=== PATIENT | male | born 1935 | race Caucasian/White ===

== ENCOUNTER 2025-02-14 10:32 | Inpatient (IN) | payer MEDICARE, OTHER ==
[~2025-02-14] VITALS: Ht 152.4 cm; Wt 77.4 kg
--- NOTE | 2025-02-14 11:13 | ED.PDOC ---
General HPI Comments This is a 89 year old male presenting to the ED with chief complaint of hematuria. Patient reports that he began to experience hematuria since last night. Patient relays that he had a similar episode occur 6 months ago, but it had self resolved. Patient denies any dysuria, flank pain, abdominal pain, fever, chills, or penile discharge. Chief Complaint: Urinary Time Seen by MD: 11:10 Reviewed notes: Nurses Notes, Medications, Allergies Allergies: Coded Allergies: Bacitracin (Verified Allergy, Unknown, 07/14/16) Neomycin (Verified Allergy, Unknown, 07/14/16) Polymyxin B (Verified Allergy, Unknown, 07/14/16) Information Source: Patient Mode of Arrival: Ambulatory Severity: Mild Timing: Hours Duration: Since onset Prehospital treatment: None Onset: Spontaneous Symptoms: Hematuria History of: BPH Location: None Penile discharge: None Modifying factors: None associated signs and symptoms: Hematuria Past Medical History PAST MEDICAL HISTORY: CKF, HTN Past Medical History (Other): BPH Surgical History: Denies all surgeries Family History Family History: Reviewed,noncontributory to illness Social History Smoker: Non-Smoker Alcohol: Denies ETOH Use Drugs: Denies Drug Use Lives In: Home Constitutional: denies: chills, diaphoresis, fatigue, fever, malaise, sweats, weakness, others EENTM: denies: blurred vision, double vision, ear bleeding, ear discharge, ear drainage, ear pain, ear ringing, eye pain, eye redness, hearing loss, mouth pain, mouth swelling, nasal discharge, nose bleeding, nose congestion, nose pain, photophobia, tearing, throat pain, throat swelling, voice changes, others Respiratory: denies: cough, hemoptysis, orthopnea, SOB at rest, shortness of breath, SOB with excertion, stridor, wheezing, others Cardiovascular: denies: chest pain, dizzy spells, diaphoresis, Dyspnea on exertion, edema, irregular heart beat, left arm pain, lightheadedness, palpitations, PND, syncope, others Gastrointestinal: denies: abdomen distended, abdominal pain, blood streaked bowels, constipated, diarrhea, dysphagia, difficulty swallowing, hematemesis, melena, nausea, poor appetite, poor fluid intake, rectal bleeding, rectal pain, vomiting, others Genitourinary: reports: hematuria; denies: burning, dysuria, flank pain, frequency, incontinence, penile discharge, penile sore, pain, testicle pain, testicle swelling, urgency, others Neurological: denies: dizziness, fainting, headache, left sided numbness, left sided weakness, numbness, paresthesia, pre-existing deficit, right sided numbness, right sided weakness, seizure, speech problems, tingling, tremors, weakness, others Musculoskeletal: denies: back pain, gout, joint pain, joint swelling, muscle pain, muscle stiffness, neck pain, others Integumetry: denies: bruises, change in color, change in hair/nails, dryness, laceration, lesions, lumps, rash, wounds, others Allergic/Immunocompromised: denies: Difficulty Healing, Frequent Infections, Hives, Itching, others Hematologic/Lymphatic: denies: anemia, blood clots, easy bleeding, easy bruising, swollen glands, others Endocrine: denies: excessive hunger, excessive sweating, excessive thirst, excessive urination, flushing, intolerance to cold, intolerance to heat, unexplained weight gain, unexplained weight loss, others Psychiatric: denies: anxiety, bipolar disorder, depression, hopeless, panic disorder, schizophrenia, sleepless, suicidal, others All Other Systems: Reviewed and Negative Physical Exam General Appearance: No Apparent Distress, Normal HEENT: Normal ENT Inspection, Pharynx Normal, TMs Normal Neck: Full Range of Motion, Non-Tender, Normal, Normal Inspection Respiratory: Chest Non-Tender, Lungs Clear, No Accessory Muscle Use, No Respiratory Distress, Normal Breath Sounds Cardiovascular: No Edema, No JVD, No Murmur, No Gallop, Normal Peripheral Pulses, Regular Rate/Rhythm Breast Exam: Deferred Gastrointestinal: No Organomegaly, Non Tender, No Pulsatile Mass, Normal Bowel Sounds, Soft Genitalia: Deferred Pelvic: Deferred Rectal: Deferred Extremities: No calf tenderness, Normal capillary refill, Normal inspection, Normal range of motion, Non-tender, No pedal edema Musculoskeletal : Apperance: Normal Neurologic: Alert, 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 Was a procedure done?: No Differential Diagnosis Kidney stone (Female): N/A Kidney stone (Male): AAA, Pyelonephritis, Renal failure, Urinary obstruction, Urolithiasis, Renal infarction, Urinary tract infection Penile/Scrotal: N/A Urinary Problem (Male): Bladder Outlet, Bladder Obstruction, Prostatitis, Renal Failure, Urethritis, Urinary Retention, Urolithiasis, UTI Urinary Problem (Female): N/A X-Ray, Labs, Meds, VS Vital Signs Date Time Temp Pulse Resp B/P (MAP) Pulse Ox O2 Delivery O2 Flow Rate FiO2 02/14/25 12:24 98.4 60 16 137/57 (83) 97 98.4 02/14/25 10:40 98.5 70 16 132/62 (85) 96 98.5 Lab Test 02/14/25 12:24 02/14/25 11:13 Range/Units Urine Color Dark-brown Yellow Urine Clarity Ex.turbid Clear Urine pH 5.5 5.0-9.0 Urine Specific [place] 1.018 1.001-1.035 Urine Protein 1+ H Negative Urine Ketones Negative Negative Urine Blood 3+ H Negative /uL Urine Nitrite Negative Negative Urine Bilirubin Negative Negative Urine Urobilinogen Normal Negative mg/dL Urine Leukocyte Esterase 1+ Negative /uL Urine RBC 5900 0 - 3 /hpf Urine Microscopic WBC 32 H 0-3 /HPF Urine Squamous Epithelial Cells None seen <5 /hpf Urine Bacteria Many H None Seen /hpf Urine Glucose Normal Normal mg/dL White Blood Count 9.2 4.4-10.8 10^3/uL Red Blood Count 4.90 4.5-5.90 10^6/uL Hemoglobin 15.0 13.5-17.5 g/dL Hematocrit 43.3 41.0-53.0 % Mean Corpuscular Volume 88.3 80.0-100.0 fL Mean Corpuscular Hemoglobin 30.5 28.0-32.0 pg Mean Corpuscular Hemoglobin Concent 34.6 32.0-36.0 g/dL Red Cell Distribution Width 13.4 11.8-14.3 % Platelet Count 192 140-450 10^3/uL Mean Platelet Volume 7.4 6.9-10.8 fL Neutrophils (%) (Auto) 71.2 37.0-80.0 % Lymphocytes (%) (Auto) 19.2 10.0-50.0 % Monocytes (%) (Auto) 7.7 0.0-12.0 % Eosinophils (%) (Auto) 1.3 0.0-7.0 % Basophils (%) (Auto) 0.6 0.0-2.0 % Neutrophils # (Auto) 6.5 1.6-8.6 10 ^3/uL Lymphocytes # (Auto) 1.8 0.4-5.4 10 ^3/uL Monocytes # (Auto) 0.7 0-1.3 10 ^3/uL Eosinophils # (Auto) 0.1 0-0.8 10 ^3/uL Basophils # (Auto) 0.1 0-0.2 10 ^3/uL Nucleated Red Blood Cells 0.1 % Sodium Level 139 136-145 mmol/L Potassium Level 5.3 H 3.5-5.1 mmol/L Chloride Level 103 98-107 mmol/L Carbon Dioxide Level 28 20-31 mmol/L Anion Gap 8 5-15 Blood Urea Nitrogen 29 H 9-23 mg/dL Creatinine 1.47 H 0.700-1.30 mg/dL Glomerular Filtration Rate Calc 45 >90 mL/min BUN/Creatinine Ratio 19.7 10.0-20.0 Serum Glucose 119 H 74-106 mg/dL Calcium Level 10.4 8.7-10.4 mg/dL CT Abd/Pel: FINDINGS: Lower chest: A 4 mm pulmonary nodule in the right middle lobe. A 3 mm nodule in the left lower lobe. Liver: 13 mm hypodense lesion in the posterior hepatic dome, indeterminate. Biliary: Small layering gallstones in the gallbladder. No gallbladder wall thic kening or pericholecystic fluid. No biliary ductal dilatation. Pancreas: No fat stranding or focal lesion. Spleen: Normal in size.. Adrenal glands: No nodularity. Kidneys: No renal calculi. No hydroureteronephrosis. Water attenuation cysts. Bladder: There are a few calculi in the urinary bladder measuring up to 18 mm. There is also a 17 mm tubular calculus in the distal right ureter near the ureterovesicular junction. Decompressed urinary bladder. Reproductive organs: Marked prostatomegaly Bowel: No bowel wall thickening or dilatation. Colonic diverticulosis without evidence of diverticulitis. Normal appendix.. Small hiatal hernia. Peritoneum: No free fluid. No free air. Vessels: Normal caliber abdominal aorta. . Lymph nodes: No suspicious lymph nodes. Soft tissues: Unremarkable. . Osseous structures: No acute fracture or subluxation. No suspicious osseous lesions. Degenerative changes of the visualized thoracolumbar spine. IMPRESSION: 1. A few urinary bladder calculi measuring up to 18 mm with marked prostatomegaly. There is also a 17 mm calculus in the distal right ureter near the ureterovesicular junction. 2. Cholelithiasis without evidence of acute cholecystitis. 3. A 1.3 cm hypodense lesion in the posterior right hepatic dome, indeterminate. Recommend further evaluation with CT or MRI with IV contrast, liver protocol. 4. A couple pulmonary nodules in the lung bases measure up to 4 mm. If the patient is high risk for lung cancer, consider follow-up chest CT in 12 months Time of 1ST Reevaluation: 12:10 Reevaluation 1ST: Unchanged Patient Education/Counseling: Diagnosis, Treatment, Prognosis, Need For Follow Up Family Education/Counseling: Diagnosis, Treatment, Prognosis, Need For Follow Up, No Family Present Comments pt has a large right distal ureter stone, with mild uti and renal insufficiency. he will be admitted for. lso he has several nonspecific lesions on the CT which requires further evaluation. Additional Information Reviewed patient's previous visit(s): 07/2016 for SOB The following tests were ordered, and results were reviewed by me: CBC, BMP, UA, CT Abd/Pel Additional information was gathered from interviewing the following independent historian: None I reviewed and agreed with the following test results read by other provider: CT Abd/Pel I discussed treatments and results with medical personnel and: Patient Comprehensive systems review obtained and negative except for what is stated in the HPI. SEPSIS Sepsis Screen Physician Orders Ct Ab Pel Wo Con-No Oral Or Iv (02/14/25 11:05) Ceftriaxone 1gm/50ml D5w (Rocephin) (02/14/25 13:15) Vital Signs Date Time Temp Pulse Resp B/P (MAP) Pulse Ox O2 Delivery O2 Flow Rate FiO2 02/14/25 12:24 98.4 60 16 137/57 (83) 97 98.4 02/14/25 10:40 98.5 70 16 132/62 (85) 96 98.5 Laboratory Tests Test 02/14/25 11:13 White Blood Count 9.2 10^3/uL (4.4-10.8) Departure 1 Departure Time of Disposition: 13:18 Impression: Primary Impression: Ureteral stone Additional Impressions: UTI (urinary tract infection) Qualified Codes: N30.01 - Acute cystitis with hematuria Renal insufficiency Lung nodules Liver nodule Disposition: ADMITTED INPATIENT Admit to: Med Surg Condition: Serious Discharged With: Self, Spouse Critical Care Note Critical Care Time?: Yes (45 min-critical care time only) Critical care comment: due to concerns for patient's condition deteriorating, the care required my highest level of attention and readiness to intervene. i assessed the patient's condition, ordered the proper tests and treatments, reassessed for response and reviewed the results. i communicated with medical personnel and formulated a plan of care. total critical care time does not include any procedures Stability Stability form required: No Heart Score Heart Score: Heart Score Response (Comments) Value History N/A 0 EKG N/A 0 Age N/A 0 Risk Factors N/A 0 Troponin N/A 0 Total 0 I personally scribed for HONEY RG MD ([email or web address]) on 02/14/25 at 11:13. Electronically submitted by Mario Andrews ([email or web address]). I personally scribed for HONEY RG MD ([email or web address]) on 02/14/25 at 12:17. Electronically submitted by Mario Andrews ([email or web address]). HONEY RG MD Feb 14, 2025 11:13
[2025-02-14 11:28] LABS: Hematocrit 43.3 % (41.0-53.0); Hemoglobin 15.0 g/dL (13.5-17.5); Mean Corpuscular Hemoglobin 30.5 pg (28.0-32.0); Mean Corpuscular Volume 88.3 fL (80.0-100.0); Nucleated Red Blood Cells % 0.1 %
[2025-02-14 11:35] LABS: Chloride 103 mmol/L (98-107); Sodium 139 mmol/L (136-145)
[2025-02-14 11:36] LABS: Anion Gap 8 (5-15); Calcium 10.4 mg/dL (8.7-10.4); Carbon Dioxide 28 mmol/L (20-31)
[2025-02-14 11:39] LABS: Potassium 5.3 mmol/L (3.5-5.1)
[2025-02-14 11:41] LABS: BUN/Creatinine Ratio 19.7 (10.0-20.0)
[2025-02-14 11:44] LABS: Blood Urea Nitrogen 29 mg/dL (9-23); Glucose 119 mg/dL (74-106)
--- NOTE | 2025-02-14 12:00 | DVH ---
EXAM DESCRIPTION: CT CT AB PEL WO CON-NO ORAL OR IV CLINICAL HISTORY: painless hematuria COMPARISON: None TECHNIQUE: CT abdomen and pelvis without IV contrast was performed. Coronal and sagittal MPR images were generat ed.CTDI/ DLP = 11.80 mGy / 657.06 mGy.cm Dose reduction technique with one or more of the following methods was performed: Automated exposure control, adjustment of the mA and/or kV according to patient size, use of iterative reconstruction te chnique FINDINGS: Lower chest: A 4 mm pulmonary nodule in the right middle lobe. A 3 mm nodule in the left lower lobe. Liver: 13 mm hypodense lesion in the posterior hepatic dome, indeterminate. Biliary: Small layering gallstones in the gallbladder. No gallbladder wall thickening or pericholecys tic fluid. No biliary ductal dilatation. Pancreas: No fat stranding or focal lesion. Spleen: Normal in size.. Adrenal glands: No nodularity. Kidneys: No renal calculi. No hydroureteronephrosis. Water attenuation cysts. Bladder: There are a few calculi in the urinary bladder measuring up to 18 mm. There is also a 17 mm tubular calculus in the distal right ureter near the ureterovesicular junction. Decompressed urinary bladder. Reproductive organs: Marked prostatomegaly Bowel: No bowel wall thickening or dilatation. Colonic diverticulosis without evidence of diverticuli tis. Normal appendix.. Small hiatal hernia. Peritoneum: No free fluid. No free air. Vessels: Normal caliber abdominal aorta. . Lymph nodes: No suspicious lymph nodes. Soft tissues: Unremarkable. . Osseous structures: No acute fracture or subluxation. No suspicious osseous lesions. Degenerative c hanges of the visualized thoracolumbar spine. IMPRESSION: 1. A few urinary bladder calculi measuring up to 18 mm with marked prostatomegaly. There is also a 17 mm calculus in the distal right ureter near the ureterovesicular junction. 2. Cholelithiasis without evidence of acute cholecystitis. 3. A 1.3 cm hypodense lesion in the posterior right hepatic dome, indeterminate. Recommend further ev aluation with CT or MRI with IV contrast, liver protocol. 4. A couple pulmonary nodules in the lung bases measure up to 4 mm. If the patient is high risk for l lenny cancer, consider follow-up chest CT in 12 months
[2025-02-14 12:43] LABS: Urine Protein, UAD 1+ (Negative)
[2025-02-14] MEDS: cefTRIAXone 1GM/50ML D5W 50 ML IV ONE (13:15)
[2025-02-14] MEDS ORDERED: DOCUSATE SOD 100 MG CAP PO PRN (15:15)
[2025-02-14] MEDS ORDERED: ONDANSETRON HCL 4 MG/2 ML VIAL IV PRN (15:15)
[2025-02-14] MEDS ORDERED: CLIN150C18 PO (15:46)
[2025-02-14] MEDS ORDERED: ATEN25TA PO (15:46)
[2025-02-14] MEDS ORDERED: PRAZ2CAP2 PO (15:46)
[2025-02-14] MEDS ORDERED: AMLO1TAB22 PO (15:46)
[2025-02-14] MEDS: SODIUM CHLORIDE 0.9% 1,000 ML IV ONE (16:00)
--- NOTE | 2025-02-14 16:00 | DVHHP2 ---
History of Present Illness Reason for Visit: Hematuria History of Present Illness Bertrand Walls is an 89-year-old male with past medical history of hypertension, BPH, and chronic kidney disease, who came to the hospital for hematuria. The patient states he had dental implants completed yesterday morning. He started antibiotics that morning. In the afternoon he had hematuria. The hematuria continued today. He thought it might be from the antibiotics, so he asked the pharmacist, and he was advised to go to the hospital. Patient states he had a previous episode of hematuria about 4-5 months ago. It went away in 1 day so he never sought medical attention. The patient has a long history of BPH for which her follows with [facility] and takes a supplement as part of his treatment. He has had TURP in the past. Cardiovascular: HTN Renal/: Chronic renal insuff, Benign prostatic enlarg. Past Surgical History: Other (TURP), Tonsillectomy Smoke: No ALCOHOL: none Lives: with Family Domestic Violence: Neg Review of Systems Constitutional: No: Fever, Chills, Sweats, Weakness, Malaise, Other Eyes: No: Pain, Vision change, Conjunctivae inflammation, Eyelid inflammation, Other, Redness ENT: No: Ear pain, Ear discharge, Nose pain, Nose discharge, Nose congestion, Mouth pain, Mouth swelling, Throat pain, Throat swelling, Other Respiratory: No: Cough, Dry, Shortness of breath, SOB with excertion, Wheezing, Hemoptysis, Pleuritic Pain, Sputum, Wheezing, Other Cardiovascular: No: Chest Pain, Palpitations, Orthopnea, Paroxysmal Noc. Dyspnea, Edema, Lt Headedness, Other Gastrointestinal: No: Nausea, Vomiting, Abdominal Pain, Diarrhea, Constipation, Melena, Hematochezia, Other Genitourinary: Dysuria, Frequency; No Incontinence; Hematuria; No Retention, No Other Musculoskeletal: No: other, neck pain, shoulder pain, arm pain, back pain, hand pain, leg pain, foot pain Skin: No: Rash, Lesions, Jaundice, Bruising, Other Neurological: No: Weakness, Numbness, Incoordination, Change in speech, Confusion, Seizures, Other Allergies: Coded Allergies: Bacitracin (Verified Allergy, Unknown, 07/14/16) Neomycin (Verified Allergy, Unknown, 07/14/16) Polymyxin B (Verified Allergy, Unknown, 07/14/16) Exam Vital Signs Vital Signs Date Time Temp Pulse Resp B/P (MAP) Pulse Ox O2 Delivery O2 Flow Rate FiO2 02/14/25 12:24 98.4 60 16 137/57 (83) 97 98.4 General Appearance: Alert, Oriented X3, Cooperative, mild distress HEENT: Atraumatic, PERRLA Respiratory: Clear to auscultation, Normal air movement Cardiovascular: Regular rate, Normal S1, Normal S2, No murmurs Abdominal: Normal bowel sounds, Soft, No tenderness, No hepatospenomegaly Extremities: No clubbing, No cyanosis, No edema, Normal pulses Skin: No rashes, No breakdown, No significant lesion Neuro: Normal gait, Normal speech, Strength at 5/5 X4 ext Psych/Mental Status: Mental status NL, Mood NL Labs/Xrays Labs Test 02/14/25 12:24 02/14/25 11:13 Range/Units Urine Color Dark-brown Yellow Urine Clarity Ex.turbid Clear Urine pH 5.5 5.0-9.0 Urine Specific [place] 1.018 1.001-1.035 Urine Protein 1+ H Negative Urine Ketones Negative Negative Urine Blood 3+ H Negative /uL Urine Nitrite Negative Negative Urine Bilirubin Negative Negative Urine Urobilinogen Normal Negative mg/dL Urine Leukocyte Esterase 1+ Negative /uL Urine RBC 5900 0 - 3 /hpf Urine Microscopic WBC 32 H 0-3 /HPF Urine Squamous Epithelial Cells None seen <5 /hpf Urine Bacteria Many H None Seen /hpf Urine Glucose Normal Normal mg/dL White Blood Count 9.2 4.4-10.8 10^3/uL Red Blood Count 4.90 4.5-5.90 10^6/uL Hemoglobin 15.0 13.5-17.5 g/dL Hematocrit 43.3 41.0-53.0 % Mean Corpuscular Volume 88.3 80.0-100.0 fL Mean Corpuscular Hemoglobin 30.5 28.0-32.0 pg Mean Corpuscular Hemoglobin Concent 34.6 32.0-36.0 g/dL Red Cell Distribution Width 13.4 11.8-14.3 % Platelet Count 192 140-450 10^3/uL Mean Platelet Volume 7.4 6.9-10.8 fL Neutrophils (%) (Auto) 71.2 37.0-80.0 % Lymphocytes (%) (Auto) 19.2 10.0-50.0 % Monocytes (%) (Auto) 7.7 0.0-12.0 % Eosinophils (%) (Auto) 1.3 0.0-7.0 % Basophils (%) (Auto) 0.6 0.0-2.0 % Neutrophils # (Auto) 6.5 1.6-8.6 10 ^3/uL Lymphocytes # (Auto) 1.8 0.4-5.4 10 ^3/uL Monocytes # (Auto) 0.7 0-1.3 10 ^3/uL Eosinophils # (Auto) 0.1 0-0.8 10 ^3/uL Basophils # (Auto) 0.1 0-0.2 10 ^3/uL Nucleated Red Blood Cells 0.1 % Sodium Level 139 136-145 mmol/L Potassium Level 5.3 H 3.5-5.1 mmol/L Chloride Level 103 98-107 mmol/L Carbon Dioxide Level 28 20-31 mmol/L Anion Gap 8 5-15 Blood Urea Nitrogen 29 H 9-23 mg/dL Creatinine 1.47 H 0.700-1.30 mg/dL Glomerular Filtration Rate Calc 45 >90 mL/min BUN/Creatinine Ratio 19.7 10.0-20.0 Serum Glucose 119 H 74-106 mg/dL Calcium Level 10.4 8.7-10.4 mg/dL CT CT AB PEL WO CON-NO ORAL OR IV FINDINGS: Lower chest: A 4 mm pulmonary nodule in the right middle lobe. A 3 mm nodule in the left lower lobe. Liver: 13 mm hypodense lesion in the posterior hepatic dome, indeterminate. Biliary: Small layering gallstones in the gallbladder. No gallbladder wall thickening or pericholecystic fluid. No biliary ductal dilatation. Pancreas: No fat stranding or focal lesion. Spleen: Normal in size.. Adrenal glands: No nodularity. Kidneys: No renal calculi. No hydroureteronephrosis. Water attenuation cysts. Bladder: There are a few calculi in the urinary bladder measuring up to 18 mm. There is also a 17 mm tubular calculus in the distal right ureter near the ureterovesicular junction. Decompressed urinary bladder. Reproductive organs: Marked prostatomegaly Bowel: No bowel wall thickening or dilatation. Colonic diverticulosis without evidence of diverticulitis. Normal appendix.. Small hiatal hernia. Peritoneum: No free fluid. No free air. Vessels: Normal caliber abdominal aorta. . Lymph nodes: No suspicious lymph nodes. Soft tissues: Unremarkable. . Osseous structures: No acute fracture or subluxation. No suspicious osseous lesions. Degenerative changes of the visualized thoracolumbar spine. IMPRESSION: 1. A few urinary bladder calculi measuring up to 18 mm with marked prostatomegaly. There is also a 17 mm calculus in the distal right ureter near the ureterovesicular junction. 2. Cholelithiasis without evidence of acute cholecystitis. 3. A 1.3 cm hypodense lesion in the posterior right hepatic dome, indeterminate. Recommend further evaluation with CT or MRI with IV contrast, liver protocol. 4. A couple pulmonary nodules in the lung bases measure up to 4 mm. If the patient is high risk for lung cancer, consider follow-up chest CT in 12 months Assessment/Plan Assessment/Plan Assessment: Bladder stones, Complicated UTI, Kidney stones, Hematuria, Liver nodule, Lung nodule, Hypertension, Chronic kidney disease, Plan: Admit to Med-Surg, Urology consult, IV hydration, IV antibiotics, Home medications reconciled, Plan discussed with: Patient My Orders Orders - PRETTY GARCIA Procedure Category Date Status Time Admit ADMIT 02/14/25 Transmitted 15:09 Code Status CODE 02/14/25 Transmitted 15:09 2 Gm Sodium Diet DIET 02/14/25 Transmitted Dinner Hydrocodone-Acet PHA 02/14/25 Transmitted 5/325mg Tab ([place] 15:15 Ondansetron Hcl PHA 02/14/25 Transmitted (Zofran) 15:15 Docusate Sodium PHA 02/14/25 Transmitted Capsule (Colace 15:15 Complete Blood Count LAB 02/15/25 Verified 04:00 Comprehensive LAB 02/15/25 Verified Metabolic Panel 04:00 Condition: Serious MARZENA 02/14/25 Transmitted 15:09 Acetaminophen Tablet PHA 02/14/25 Transmitted (Tylenol Tablet) 15:15 Ceftriaxone Ivpb PHA 02/15/25 Transmitted Rocephin 09:00 * Urology Consult CONS 02/14/25 Transmitted 15:09 Amlodipine Tablet PHA 02/14/25 Transmitted (Norvasc Tablet) 22:00 Atenolol Tablet PHA 02/15/25 Transmitted (Tenormin Tablet) 10:00 Clindamycin Capsule PHA 02/14/25 Transmitted (Cleocin Capsule) 22:00 (Nf) Prazosin Hcl PHA 02/14/25 Transmitted (Prazosin Hydrochlorid 22:00 Date of Service: Feb 14, 2025 Billing Provider: PRETTY GARCIA Common Visit Codes: 74268-EAEAWNN INP/OBS CARE (MOD) PRETTY GARCIA Feb 14, 2025 16:00
[2025-02-14 17:13] VITALS: BP 150/69; PULSE 70; RESP 20; TEMP 98.7; O2SAT 97
[2025-02-14 17:32] VITALS: BP 169/68; PULSE 70; RESP 18; TEMP 97.8; O2SAT 97
[2025-02-14 17:39] VITALS: BP 169/68; PULSE 70; RESP 18; TEMP 97.8; O2SAT 97
[2025-02-14 18:07] VITALS: BP 152/72; PULSE 63; RESP 18; TEMP 97.8; O2SAT 97
[2025-02-14] MEDS: SODIUM CHLORIDE 0.9% 1,000 ML IV SCH (19:28)
[2025-02-14 20:00] VITALS: PULSE 65; RESP 18; O2SAT 97
[2025-02-14 21:00] VITALS: BP 153/79; PULSE 65; RESP 24; TEMP 97.7; O2SAT 97
[2025-02-14] MEDS: CLINDAMYCIN HCL 150 MG CAP PO SCH (21:35)
[2025-02-14] MEDS: PRAZOSIN HCL 1 MG CAP PO SCH (21:45)
[2025-02-15] VITALS (7 sets, daily range): BP systolic 119–168; BP diastolic 50–86; PULSE 51–91; RESP 16–18; TEMP 97.5–98.4; O2SAT 95–98
[2025-02-15] MEDS: hydrALAZINE HCL 20 MG/ML VL IV PRN (00:51)
[2025-02-15] MEDS: ACETAMINOPHEN 325 MG TAB PO PRN (01:16)
[2025-02-15] MEDS: LIDOCAINE 2% JELLY 11ml (GLYDO) UR ONE ×2 (07:30→09:00)
[2025-02-15] MEDS: HYDROcodone-ACET 5/325MG TAB PO PRN (07:39)
--- NOTE | 2025-02-15 09:09 | DVH ---
History: retention, thomas placement Comparison: None Technique: Grayscale and color Doppler ultrasound of the pelvis was obtained. Pre-and postvoid images of the bladder were obtained. FINDINGS/IMPRESSION: Prevoid bladder volume is 193 cc. Patient has a urinary Thomas catheter. Echogenic material is identified in the base of the urinary bladder could be debris.
[2025-02-15] MEDS: ATENOLOL 25 MG TAB PO SCH (09:17)
--- NOTE | 2025-02-15 09:50 | DVHOP2 ---
Operative Report - 2 Report Details Date: 02/15/25 Preop Diagnosis: urinary retention,difficult cath Postop Diagnosis: same Surgeon: Sri Martinez Anesthesiologist: none Anesthesia: Local Drains: 16fr thomas Consent: The patient was informed of the risks and benefits of the procedure. These include but are not limited to complications of anesthesia, postoperative infection, incomplete relief of symptoms, recurrence of symptoms, damage to blood vessels, nerves and tendons, deep venous thrombosis, pulmonary embolism and possible need for repeat surgery in the future. Complications: none Estimated Blood Loss: none Fluids: none Findings: post tur Indications for Surgery: urinary retention,bladder stone Name of Procedure Performed complex cath Procedure Details Procedure Details: 16 chilean thomas passed without problem over catheter guide Specimen: no Condition Good Disposition Acute Care Facility SRI MARTINEZ MD Feb 15, 2025 09:49
[2025-02-15] MEDS: cefTRIAXone 1GM/50ML D5W 50 ML IV SCH (10:29)
[2025-02-15 11:00] LABS: Hematocrit 44.6 % (41.0-53.0); Hemoglobin 15.1 g/dL (13.5-17.5); Mean Corpuscular Hemoglobin 30.0 pg (28.0-32.0); Mean Corpuscular Volume 88.3 fL (80.0-100.0); Nucleated Red Blood Cells % 0.0 %
[2025-02-15 11:17] LABS: Alanine Aminotransferase 12 U/L (7-40); Albumin 4.7 g/dL (3.2-4.8); Alkaline Phosphatase 68 U/L (46-116); Anion Gap 11 (5-15); BUN/Creatinine Ratio 18.1 (10.0-20.0); Bilirubin, Total 0.7 mg/dL (0.2-1.0); Calcium 9.9 mg/dL (8.7-10.4); Carbon Dioxide 22 mmol/L (20-31); Chloride 106 mmol/L (98-107); Potassium 4.1 mmol/L (3.5-5.1); Sodium 139 mmol/L (136-145); Total Protein 7.4 g/dL (5.7-8.2)
[2025-02-15 11:31] LABS: Blood Urea Nitrogen 25 mg/dL (9-23); Glucose 112 mg/dL (74-106)
--- NOTE | 2025-02-15 13:42 | DVHPN2 ---
Reviewed: Care Plan, H&P, Labs, Medications, Previous Orders, Radiology Changes from previous H/P or p: No Changes Eyes: No Pain, No Vision change, No Conjunctivae inflammation, No Eyelid inflammation, No Other, No Redness ENT: No Ear pain, No Ear discharge, No Nose pain, No Nose discharge, No Nose congestion, No Mouth pain, No Mouth swelling, No Throat pain, No Throat swelling, No Other Cardiovascular: No Chest Pain, No Palpitations, No Orthopnea, No Paroxysmal Noc. Dyspnea, No Edema, No Lt Headedness, No Other Respiratory: No Cough, No Dry, No Shortness of breath, No SOB with excertion, No Wheezing, No Hemoptysis, No Pleuritic Pain, No Sputum, No Other Gastrointestinal: No Nausea, No Vomiting, No Abdominal Pain, No Diarrhea, No Constipation, No Melena, No Hematochezia, No Other Genitourinary: Dysuria, Frequency; No Incontinence; Hematuria; No Retention, No Other Musculoskeletal: No other, No neck pain, No shoulder pain, No arm pain, No back pain, No hand pain, No leg pain, No foot pain Skin: No Rash, No Lesions, No Jaundice, No Bruising, No Other Objective Vitals Vital Signs Date Time Temp Pulse Resp B/P (MAP) Pulse Ox O2 Delivery O2 Flow Rate FiO2 02/15/25 10:28 165/79 02/15/25 09:17 91 02/15/25 09:00 98.3 17 98 98.3 02/14/25 20:00 Room Air* 0 21 Intake/Output Intake and Output 02/15/25 07:00 Intake Total 500 ml Balance 500 ml Intake Oral 450 ml IV Total 50 ml # Voids 2 Medications Current Medications Medications Dose Ordered Sig/Kasie Route Start Time Stop Time Status Last Admin Dose Admin Acetaminophen/ Hydrocodone Bitart 1 tab Q4HP PRN PO 02/14/25 15:15 02/15/25 07:39 1 TAB Ondansetron HCl 4 mg Q4HP PRN IV 02/14/25 15:15 Docusate Sodium 100 mg BIDPRN PRN PO 02/14/25 15:15 Acetaminophen 650 mg Q6HP PRN PO 02/14/25 15:15 02/15/25 07:32 650 MG Ceftriaxone Sodium 50 ml @ 100 mls/hr DAILY@09 IV 02/15/25 09:00 02/15/25 10:29 100 MLS/HR Amlodipine Besylate 5 mg BID PO 02/14/25 22:00 02/15/25 09:16 5 MG Atenolol 12.5 mg DAILY PO 02/15/25 10:00 02/15/25 09:17 12.5 MG Prazosin HCl 4 mg BID PO 02/14/25 22:00 02/15/25 10:28 4 MG Sodium Chloride 1,000 ml @ 75 mls/hr [id number] IV 02/14/25 16:00 02/14/25 19:28 75 MLS/HR Hydralazine HCl 10 mg Q6HP PRN IV 02/15/25 00:45 02/15/25 00:51 10 MG Laboratory Results Laboratory Tests 02/15/25 10:28 Chemistry Test 02/15/25 10:28 Albumin 4.7 g/dL (3.2-4.8) Calcium Level 9.9 mg/dL (8.7-10.4) Total Protein 7.4 g/dL (5.7-8.2) LFT Test 02/15/25 10:28 Alanine Aminotransferase (ALT) 12 U/L (7-40) Alkaline Phosphatase 68 U/L (46-116) Aspartate Amino Transferase (AST) 24 U/L (13-40) Total Bilirubin 0.7 mg/dL (0.2-1.0) Urinalysis Test 02/14/25 12:24 Urine Color Dark-brown (Yellow) Urine Clarity Ex.turbid (Clear) Urine pH 5.5 (5.0-9.0) Urine Specific [place] 1.018 (1.001-1.035) Urine Protein 1+ (Negative) H Urine Ketones Negative (Negative) Urine Blood 3+ /uL (Negative) H Urine Nitrite Negative (Negative) Urine Bilirubin Negative (Negative) Urine Urobilinogen Normal mg/dL (Negative) Urine Leukocyte Esterase 1+ /uL (Negative) Urine RBC 5900 /hpf (0 - 3) Urine Microscopic WBC 32 /HPF (0-3) H Urine Squamous Epithelial Cells None seen /hpf (<5) Urine Bacteria Many /hpf (None Seen) H Urine Glucose Normal mg/dL (Normal) Labs and/or images reviewed: Labs reviewed by me, Image(s) reviewed by me Assessment/Plan Assessment/Plan Acute urinary retention: Status post Jones catheter placement by Urology Sepsis secondary to urinary tract infection: Blood cultures urine cultures Rocephin Bladder stones Hypertension BPH History of TURP Possible dementia Time spent 55 minutes Patient is full code Advanced care planning time 20 mts Plan discussed with: Patient My Orders Orders - WOJCIECH AGUIRRE MD Procedure Category Date Status Time Blood Culture MANUEL 02/15/25 Logged 13:31 Urine Bacterial MANUEL 02/15/25 Logged Culture 13:31 Date of Service: Feb 15, 2025 Billing Provider: WOJCIECH AGUIRRE MD Common Visit Codes: [id number] INP/OBS CARE(HIGH) Secondary Visit Codes: [id number] CARE PLAN 30 MINUTES WOJCIECH AGUIRRE MD Feb 15, 2025 13:42
[2025-02-16 01:00] VITALS: BP 130/56; PULSE 54; RESP 18; TEMP 98; O2SAT 98
[2025-02-16 05:00] VITALS: BP 129/52; PULSE 60; RESP 18; TEMP 98.3; O2SAT 96
[2025-02-16 09:00] VITALS: BP 150/65; PULSE 57; RESP 16; TEMP 97.9; O2SAT 95
--- NOTE | 2025-02-16 09:42 | DVHPN2 ---
Reviewed: Care Plan, H&P, Labs, Medications, Previous Orders, Radiology Changes from previous H/P or p: No Changes Eyes: No Pain, No Vision change, No Conjunctivae inflammation, No Eyelid inflammation, No Other, No Redness ENT: No Ear pain, No Ear discharge, No Nose pain, No Nose discharge, No Nose congestion, No Mouth pain, No Mouth swelling, No Throat pain, No Throat swelling, No Other Cardiovascular: No Chest Pain, No Palpitations, No Orthopnea, No Paroxysmal Noc. Dyspnea, No Edema, No Lt Headedness, No Other Respiratory: No Cough, No Dry, No Shortness of breath, No SOB with excertion, No Wheezing, No Hemoptysis, No Pleuritic Pain, No Sputum, No Other Gastrointestinal: No Nausea, No Vomiting, No Abdominal Pain, No Diarrhea, No Constipation, No Melena, No Hematochezia, No Other Genitourinary: Dysuria, Frequency; No Incontinence; Hematuria; No Retention, No Other Musculoskeletal: No other, No neck pain, No shoulder pain, No arm pain, No back pain, No hand pain, No leg pain, No foot pain Skin: No Rash, No Lesions, No Jaundice, No Bruising, No Other Objective Vitals Vital Signs Date Time Temp Pulse Resp B/P (MAP) Pulse Ox O2 Delivery O2 Flow Rate FiO2 02/16/25 09:14 57 150/65 02/16/25 08:15 Room Air* 0 21 02/16/25 05:00 98.3 18 96 98.3 Intake/Output Intake and Output 02/16/25 07:00 Intake Total 2570 ml Output Total 2300 ml Balance 270 ml Intake Oral 1620 ml IV Total 950 ml Output Urine Total 2300 ml # Bowel Movements 1 Medications Current Medications Medications Dose Ordered Sig/Kasie Route Start Time Stop Time Status Last Admin Dose Admin Acetaminophen/ Hydrocodone Bitart 1 tab Q4HP PRN PO 02/14/25 15:15 02/15/25 07:39 1 TAB Ondansetron HCl 4 mg Q4HP PRN IV 02/14/25 15:15 Docusate Sodium 100 mg BIDPRN PRN PO 02/14/25 15:15 Acetaminophen 650 mg Q6HP PRN PO 02/14/25 15:15 02/15/25 07:32 650 MG Ceftriaxone Sodium 50 ml @ 100 mls/hr DAILY@09 IV 02/15/25 09:00 02/16/25 09:13 100 MLS/HR Amlodipine Besylate 5 mg BID PO 02/14/25 22:00 02/16/25 09:14 5 MG Atenolol 12.5 mg DAILY PO 02/15/25 10:00 02/16/25 09:14 12.5 MG Prazosin HCl 4 mg BID PO 02/14/25 22:00 02/16/25 09:13 4 MG Sodium Chloride 1,000 ml @ 75 mls/hr [id number] IV 02/14/25 16:00 02/16/25 09:13 75 MLS/HR Hydralazine HCl 10 mg Q6HP PRN IV 02/15/25 00:45 02/15/25 00:51 10 MG Laboratory Results Laboratory Tests 02/15/25 10:28 Chemistry Test 02/15/25 10:28 Albumin 4.7 g/dL (3.2-4.8) Calcium Level 9.9 mg/dL (8.7-10.4) Total Protein 7.4 g/dL (5.7-8.2) LFT Test 02/15/25 10:28 Alanine Aminotransferase (ALT) 12 U/L (7-40) Alkaline Phosphatase 68 U/L (46-116) Aspartate Amino Transferase (AST) 24 U/L (13-40) Total Bilirubin 0.7 mg/dL (0.2-1.0) Urinalysis Test 02/14/25 12:24 Urine Color Dark-brown (Yellow) Urine Clarity Ex.turbid (Clear) Urine pH 5.5 (5.0-9.0) Urine Specific [place] 1.018 (1.001-1.035) Urine Protein 1+ (Negative) H Urine Ketones Negative (Negative) Urine Blood 3+ /uL (Negative) H Urine Nitrite Negative (Negative) Urine Bilirubin Negative (Negative) Urine Urobilinogen Normal mg/dL (Negative) Urine Leukocyte Esterase 1+ /uL (Negative) Urine RBC 5900 /hpf (0 - 3) Urine Microscopic WBC 32 /HPF (0-3) H Urine Squamous Epithelial Cells None seen /hpf (<5) Urine Bacteria Many /hpf (None Seen) H Urine Glucose Normal mg/dL (Normal) Labs and/or images reviewed: Labs reviewed by me, Image(s) reviewed by me Assessment/Plan Assessment/Plan Acute urinary retention: Status post Jones catheter placement by Urology Sepsis secondary to urinary tract infection: Blood cultures urine cultures Rocephin Bladder stones Hypertension BPH History of TURP Possible dementia Time spent 55 minutes Patient is full code Advanced care planning time 20 mts Plan discussed with: Patient My Orders Orders - WOJCIECH AGUIRRE MD Procedure Category Date Status Time Blood Culture MANUEL 02/15/25 In Process 13:31 Urine Bacterial MANUEL 02/15/25 In Process Culture 13:31 Date of Service: Feb 16, 2025 Billing Provider: WOJCIECH AGUIRRE MD Common Visit Codes: [id number] INP/OBS CARE(HIGH) WOJCIECH AGUIRRE MD Feb 16, 2025 09:42
[2025-02-16 13:00] VITALS: BP 122/49; PULSE 50; RESP 16; TEMP 97.9; O2SAT 94
[2025-02-16 17:00] VITALS: BP 123/79; PULSE 45; RESP 17; TEMP 98.6; O2SAT 94
[2025-02-16 21:00] VITALS: BP 147/69; PULSE 50; RESP 20; TEMP 99.7; O2SAT 92
[2025-02-16] MEDS: PRAZOSIN HCL 1 MG CAP ONE ×2 (22:41)
[2025-02-17] VITALS (8 sets, daily range): BP systolic 141–167; BP diastolic 53–82; PULSE 56–75; RESP 17–20; TEMP 97.5–100.2; O2SAT 94–96
--- NOTE | 2025-02-17 08:41 | DVHPN2 ---
Reviewed: Care Plan, H&P, Labs, Medications, Previous Orders, Radiology Changes from previous H/P or p: No Changes Eyes: No Pain, No Vision change, No Conjunctivae inflammation, No Eyelid inflammation, No Other, No Redness ENT: No Ear pain, No Ear discharge, No Nose pain, No Nose discharge, No Nose congestion, No Mouth pain, No Mouth swelling, No Throat pain, No Throat swelling, No Other Cardiovascular: No Chest Pain, No Palpitations, No Orthopnea, No Paroxysmal Noc. Dyspnea, No Edema, No Lt Headedness, No Other Respiratory: No Cough, No Dry, No Shortness of breath, No SOB with excertion, No Wheezing, No Hemoptysis, No Pleuritic Pain, No Sputum, No Other Gastrointestinal: No Nausea, No Vomiting, No Abdominal Pain, No Diarrhea, No Constipation, No Melena, No Hematochezia, No Other Genitourinary: Dysuria, Frequency; No Incontinence; Hematuria; No Retention, No Other Musculoskeletal: No other, No neck pain, No shoulder pain, No arm pain, No back pain, No hand pain, No leg pain, No foot pain Skin: No Rash, No Lesions, No Jaundice, No Bruising, No Other Objective Vitals Vital Signs Date Time Temp Pulse Resp B/P (MAP) Pulse Ox O2 Delivery O2 Flow Rate FiO2 02/17/25 05:19 163/87 02/17/25 05:00 99.8 57 20 95 99.8 02/16/25 19:48 Room Air* 0 21 Intake/Output Intake and Output 02/17/25 07:00 Intake Total 3030 ml Output Total 4727 ml Balance -1697 ml Intake Oral 1980 ml IV Total 1050 ml Output Urine Total 4725 ml Stool Total 2 ml Medications Current Medications Medications Dose Ordered Sig/Kasie Route Start Time Stop Time Status Last Admin Dose Admin Acetaminophen/ Hydrocodone Bitart 1 tab Q4HP PRN PO 02/14/25 15:15 02/15/25 07:39 1 TAB Ondansetron HCl 4 mg Q4HP PRN IV 02/14/25 15:15 Docusate Sodium 100 mg BIDPRN PRN PO 02/14/25 15:15 Acetaminophen 650 mg Q6HP PRN PO 02/14/25 15:15 02/15/25 07:32 650 MG Ceftriaxone Sodium 50 ml @ 100 mls/hr DAILY@09 IV 02/15/25 09:00 02/16/25 09:13 100 MLS/HR Amlodipine Besylate 5 mg BID PO 02/14/25 22:00 02/16/25 09:14 5 MG Atenolol 12.5 mg DAILY PO 02/15/25 10:00 02/16/25 09:14 12.5 MG Prazosin HCl 4 mg BID PO 02/14/25 22:00 02/16/25 22:43 4 MG Sodium Chloride 1,000 ml @ 75 mls/hr [id number] IV 02/14/25 16:00 02/16/25 17:18 75 MLS/HR Hydralazine HCl 10 mg Q6HP PRN IV 02/15/25 00:45 02/17/25 05:19 10 MG Laboratory Results Laboratory Tests 02/15/25 10:28 Urinalysis Test 02/14/25 12:24 Urine Color Dark-brown (Yellow) Urine Clarity Ex.turbid (Clear) Urine pH 5.5 (5.0-9.0) Urine Specific [place] 1.018 (1.001-1.035) Urine Protein 1+ (Negative) H Urine Ketones Negative (Negative) Urine Blood 3+ /uL (Negative) H Urine Nitrite Negative (Negative) Urine Bilirubin Negative (Negative) Urine Urobilinogen Normal mg/dL (Negative) Urine Leukocyte Esterase 1+ /uL (Negative) Urine RBC 5900 /hpf (0 - 3) Urine Microscopic WBC 32 /HPF (0-3) H Urine Squamous Epithelial Cells None seen /hpf (<5) Urine Bacteria Many /hpf (None Seen) H Urine Glucose Normal mg/dL (Normal) Microbiology Microbiology Date/Time Source Procedure Growth Status 02/15/25 13:55 Blood Blood Culture - Preliminary NO GROWTH AFTER 24 HOURS OF INCUBATION. Resulted Labs and/or images reviewed: Labs reviewed by me, Image(s) reviewed by me Assessment/Plan Assessment/Plan Acute urinary retention: Status post Jones catheter placement by Urology Sepsis secondary to urinary tract infection: Blood cultures negative, urine cultures pending, continue Rocephin 17 mm right UVJ stone with multiple bladder stones: Consult for Urology Dr. Nava Hypertension 1.3 cm right hepatic hypodense lesion: MRI abdomen with and without IV contrast ordered Marked prostatomegaly, consult for Urology Possible dementia Time spent 55 minutes Patient is full code Advanced care planning time 20 mts Plan discussed with: Patient My Orders Orders - WOJCIECH AUGIRRE MD Procedure Category Date Status Time Mri Abdomen W And Wo MRI 02/17/25 Verified 08:34 Date of Service: Feb 17, 2025 Billing Provider: WOJCIECH AGUIRRE MD Common Visit Codes: [id number] INP/OBS CARE(HIGH) WOJCIECH AGUIRRE MD Feb 17, 2025 08:41
--- NOTE | 2025-02-17 11:23 | DVHINCON2 ---
Date of service: Feb 17, [address] Love Reason for Consultation bladder stones History of Present Illness History Source: Patient, RN Notes, MD Notes, Old Records Exam Limitations: No limitations HPI 89 yo male presenting to the ED with chief complaint of hematuria. Patient reports that he began to experience hematuria since last night. Patient relays that he had a similar episode occur 6 months ago, but it had self resolved. Patient denies any dysuria, flank pain, abdominal pain, fever, chills, or penile discharge. Dr. Martinez placed a thomas catheter over the weekend. CT showed: Kidneys: No renal calculi. No hydroureteronephrosis. Water attenuation cysts. Bladder: There are a few calculi in the urinary bladder measuring up to 18 mm. There is also a 17 mm tubular calculus in the distal right ureter near the ureterovesicular junction. Decompressed urinary bladder. Reproductive organs: Marked prostatomegaly Home Meds Reported Medications Prazosin HCl (Prazosin Hydrochloride) 2 Mg Cap, 4 MG PO BID 02/14/25 Amlodipine Besylate (Amlodipine Besylate) 5 Mg Tab, 1 TAB PO BID 02/14/25 Atenolol (Atenolol) 25 Mg Tab, 0.5 TAB PO DAILY 02/14/25 Clindamycin Hcl (Clindamycin Hcl) 150 Mg Cap, 2 CAP PO TID 02/14/25 Past Medical History Renal/: Benign prostatic enlarg. Patient Family History: Hypertension G8 MOTHER, G8 FATHER, Review of Systems Constitutional: No symptom reported Ears, Nose, & Throat: No symptom reported Eyes: No symptom reported Pulmonary/Respiratory: No symptom reported Cardiovascular: No symptom reported Gastrointestinal: No symptom reported Genitourinary: No symptom reported Musculoskeletal: No symptom reported Skin: No symptom reported Psychiatric: No symptom reported Endocrine: No symptom reported Hemotologic/Lymphatic: No symptom reported H&P Exam Vital Signs Vital Signs Date Time Temp Pulse Resp B/P (MAP) Pulse Ox O2 Delivery O2 Flow Rate FiO2 02/17/25 09:59 167/69 02/17/25 09:00 97.5 68 17 96 97.5 02/17/25 08:20 Room Air* 0 21 General Appeara: Well developed, Well nourished, Normal Appearance Neuro/Mental St: Alert, Oriented Appearance: Appropriate appearance, Appropriate insight Eye contact/ Speech: Cooperative, Good eye contact, Normal speech Skin Exam: Normal inspection, Normal color, Warm/dry Labs/Xrays [place] [address] Ph: [phone] DIAGNOSTIC IMAGING Diagnostic Imaging Report : [id number] Signed PATIENT: PREET SIMON ACCT: [id number] UNIT: [id number] : 1935 LOC: ER ROOM / BED: / AGE / SEX: 89 / M ADM STATUS: REG ER SERVICE 1105 ORDERING PHYSICIAN: HONEY RG MD PROCEDURE(s): ABPL - CT AB PEL WO CON-NO ORAL OR IV REASON: painless hematuria ORDER NUMBER(s): [id number], ACCESSION NUMBER(s): [id number] EXAM DESCRIPTION: CT CT AB PEL WO CON-NO ORAL OR IV CLINICAL HISTORY: painless hematuria COMPARISON: None TECHNIQUE: CT abdomen and pelvis without IV contrast was performed. Coronal and sagittal MPR images were generated.CTDI/ DLP = 11.80 mGy / 657.06 mGy.cm Dose reduction technique with one or more of the following methods was performed: Automated exposure control, adjustment of the mA and/or kV according to patient size, use of iterative reconstruction technique FINDINGS: Lower chest: A 4 mm pulmonary nodule in the right middle lobe. A 3 mm nodule in the left lower lobe. Liver: 13 mm hypodense lesion in the posterior hepatic dome, indeterminate. Biliary: Small layering gallstones in the gallbladder. No gallbladder wall thickening or pericholecystic fluid. No biliary ductal dilatation. Pancreas: No fat stranding or focal lesion. Spleen: Normal in size.. Adrenal glands: No nodularity. Kidneys: No renal calculi. No hydroureteronephrosis. Water attenuation cysts. Bladder: There are a few calculi in the urinary bladder measuring up to 18 mm. There is also a 17 mm tubular calculus in the distal right ureter near the ureterovesicular junction. Decompressed urinary bladder. Reproductive organs: Marked prostatomegaly Bowel: No bowel wall thickening or dilatation. Colonic diverticulosis without evidence of diverticulitis. Normal appendix.. Small hiatal hernia. Peritoneum: No free fluid. No free air. Vessels: Normal caliber abdominal aorta. . Lymph nodes: No suspicious lymph nodes. Soft tissues: Unremarkable. . Osseous structures: No acute fracture or subluxation. No suspicious osseous lesions. Degenerative changes of the visualized thoracolumbar spine. IMPRESSION: 1. A few urinary bladder calculi measuring up to 18 mm with marked prostatomegaly. There is also a 17 mm calculus in the distal right ureter near the ureterovesicular junction. 2. Cholelithiasis without evidence of acute cholecystitis. 3. A 1.3 cm hypodense lesion in the posterior right hepatic dome, indeterminate. Recommend further evaluation with CT or MRI with IV contrast, liver protocol. 4. A couple pulmonary nodules in the lung bases measure up to 4 mm. If the patient is high risk for lung cancer, consider follow-up chest CT in 12 months ATED BY: SHON VILLEGAS MD DICTATED DATE/TIME: 02/14/25 1157 SIGNED BY: SHON VILLEGAS MD SIGNED DATE/TIME: 02/14/25 1157 CC: Labs Test 02/15/25 10:28 02/14/25 12:24 Range/Units White Blood Count 14.9 #H 4.4-10.8 10^3/uL Red Blood Count 5.05 4.5-5.90 10^6/uL Hemoglobin 15.1 13.5-17.5 g/dL Hematocrit 44.6 41.0-53.0 % Mean Corpuscular Volume 88.3 80.0-100.0 fL Mean Corpuscular Hemoglobin 30.0 28.0-32.0 pg Mean Corpuscular Hemoglobin Concent 33.9 32.0-36.0 g/dL Red Cell Distribution Width 13.7 11.8-14.3 % Platelet Count 185 140-450 10^3/uL Mean Platelet Volume 7.5 6.9-10.8 fL Neutrophils (%) (Auto) 91.7 H 37.0-80.0 % Lymphocytes (%) (Auto) 2.7 L 10.0-50.0 % Monocytes (%) (Auto) 5.5 0.0-12.0 % Eosinophils (%) (Auto) 0.0 0.0-7.0 % Basophils (%) (Auto) 0.1 0.0-2.0 % Neutrophils # (Auto) 13.7 H 1.6-8.6 10 ^3/uL Lymphocytes # (Auto) 0.4 0.4-5.4 10 ^3/uL Monocytes # (Auto) 0.8 0-1.3 10 ^3/uL Eosinophils # (Auto) 0 0-0.8 10 ^3/uL Basophils # (Auto) 0 0-0.2 10 ^3/uL Nucleated Red Blood Cells 0.0 % Sodium Level 139 136-145 mmol/L Potassium Level 4.1 3.5-5.1 mmol/L Chloride Level 106 98-107 mmol/L Carbon Dioxide Level 22 20-31 mmol/L Anion Gap 11 5-15 Blood Urea Nitrogen 25 H 9-23 mg/dL Creatinine 1.38 H 0.700-1.30 mg/dL Glomerular Filtration Rate Calc 49 >90 mL/min BUN/Creatinine Ratio 18.1 10.0-20.0 Serum Glucose 112 H 74-106 mg/dL Calcium Level 9.9 8.7-10.4 mg/dL Total Bilirubin 0.7 0.2-1.0 mg/dL Aspartate Amino Transferase (AST) 24 13-40 U/L Alanine Aminotransferase (ALT) 12 7-40 U/L Alkaline Phosphatase 68 46-116 U/L Total Protein 7.4 5.7-8.2 g/dL Albumin 4.7 3.2-4.8 g/dL Urine Color Dark-brown Yellow Urine Clarity Ex.turbid Clear Urine pH 5.5 5.0-9.0 Urine Specific [place] 1.018 1.001-1.035 Urine Protein 1+ H Negative Urine Ketones Negative Negative Urine Blood 3+ H Negative /uL Urine Nitrite Negative Negative Urine Bilirubin Negative Negative Urine Urobilinogen Normal Negative mg/dL Urine Leukocyte Esterase 1+ Negative /uL Urine RBC 5900 0 - 3 /hpf Urine Microscopic WBC 32 H 0-3 /HPF Urine Squamous Epithelial Cells None seen <5 /hpf Urine Bacteria Many H None Seen /hpf Urine Glucose Normal Normal mg/dL Microbiology Date/Time Source Procedure Growth Status 02/15/25 13:55 Blood Blood Culture - Preliminary NO GROWTH AFTER 24 HOURS OF INCUBATION. Resulted Assessment/Plan Problem List: (1) Ureteral stone (2) Renal insufficiency (3) UTI (urinary tract infection) (4) Lung nodules (5) Liver nodule (6) Bladder stones (7) Hematuria Plan d/c home with thomas to leg bag pt will need outpt cystolitholapaxy TBA cleared from urology standpoint when medically stable. Plan discussed with: Patient, Other LAW ESPANA NP Feb 17, 2025 11:23
--- NOTE | 2025-02-17 13:12 | DVH ---
PROCEDURE: MRI MRI ABDOMEN W AND WO Indication: 1.3 cm right hepatic mass COMPARISON: 02/14/2025 TECHNIQUE: Multiplanar multisequence images of the abdomen were obtained with and without contrast FINDINGS: The kidneys demonstrate no hydronephrosis right renal cyst measuring 2.1 cm. Other smaller bilateral renal cysts. 1.2 cm right renal lower pole hemorrhagic/proteinaceous cysts. Adrenal glands, spleen, pancreas unremarkable. There is a posterior right hepatic lobe T2 bright lesion measuring 1.4 cm corresponding to the lesion seen in the previous CT. The lesion demonstrates enhancement on the delayed phase however there is o verall poor characterization due to the early contrast-enhanced phase demonstrating contrast within t he portal vein. No evidence for cholelithiasis. Small hiatal hernia. Imaged small bowel loops normal in caliber. IMPRESSION: 1.4 cm T2 bright lesion within the posterior right hepatic lobe suboptimally characterized secondary to the contrast-enhanced phase already demonstrating contrast within the portal venous phase, possibl y hemangioma however other aggressive lesions can not be ruled out. Recommend dedicated multiphasic MRI abdomen with arterial, portal venous and delayed phase imaging
[2025-02-18 01:00] VITALS: BP 140/56; PULSE 64; RESP 17; TEMP 97.6; O2SAT 96
[2025-02-18 05:00] VITALS: BP 106/70; PULSE 60; RESP 17; TEMP 97.6; O2SAT 93
[2025-02-18] MEDS: GADOTERATE MEG 7.5 MMOL/15ml INJ (0.5MMOL/ml) IV ONE (07:40)
[2025-02-18 08:00] VITALS: PULSE 64; RESP 17; O2SAT 96
--- NOTE | 2025-02-18 08:25 | DVHPN2 ---
Reviewed: Care Plan, H&P, Labs, Medications, Previous Orders, Radiology Changes from previous H/P or p: No Changes Eyes: No Pain, No Vision change, No Conjunctivae inflammation, No Eyelid inflammation, No Other, No Redness ENT: No Ear pain, No Ear discharge, No Nose pain, No Nose discharge, No Nose congestion, No Mouth pain, No Mouth swelling, No Throat pain, No Throat swelling, No Other Cardiovascular: No Chest Pain, No Palpitations, No Orthopnea, No Paroxysmal Noc. Dyspnea, No Edema, No Lt Headedness, No Other Respiratory: No Cough, No Dry, No Shortness of breath, No SOB with excertion, No Wheezing, No Hemoptysis, No Pleuritic Pain, No Sputum, No Other Gastrointestinal: No Nausea, No Vomiting, No Abdominal Pain, No Diarrhea, No Constipation, No Melena, No Hematochezia, No Other Genitourinary: Dysuria, Frequency; No Incontinence; Hematuria; No Retention, No Other Musculoskeletal: No other, No neck pain, No shoulder pain, No arm pain, No back pain, No hand pain, No leg pain, No foot pain Skin: No Rash, No Lesions, No Jaundice, No Bruising, No Other Objective Vitals Vital Signs Date Time Temp Pulse Resp B/P (MAP) Pulse Ox O2 Delivery O2 Flow Rate FiO2 02/18/25 05:00 97.6 60 17 106/70 (82) 93 97.6 02/17/25 20:00 Room Air* 0 21 Intake/Output Intake and Output 02/18/25 07:00 Intake Total 3750 ml Output Total 2901 ml Balance 849 ml Intake Oral 1250 ml IV Total 2500 ml Output Urine Total 2900 ml Stool Total 1 ml # Bowel Movements 1 Medications Current Medications Medications Dose Ordered Sig/Kasie Route Start Time Stop Time Status Last Admin Dose Admin Acetaminophen/ Hydrocodone Bitart 1 tab Q4HP PRN PO 02/14/25 15:15 02/15/25 07:39 1 TAB Ondansetron HCl 4 mg Q4HP PRN IV 02/14/25 15:15 Docusate Sodium 100 mg BIDPRN PRN PO 02/14/25 15:15 Acetaminophen 650 mg Q6HP PRN PO 02/14/25 15:15 02/15/25 07:32 650 MG Ceftriaxone Sodium 50 ml @ 100 mls/hr DAILY@09 IV 02/15/25 09:00 02/17/25 08:38 100 MLS/HR Amlodipine Besylate 5 mg BID PO 02/14/25 22:00 02/17/25 21:26 5 MG Atenolol 12.5 mg DAILY PO 02/15/25 10:00 02/16/25 09:14 12.5 MG Prazosin HCl 4 mg BID PO 02/14/25 22:00 02/17/25 21:25 4 MG Sodium Chloride 1,000 ml @ 75 mls/hr [id number] IV 02/14/25 16:00 02/18/25 01:39 75 MLS/HR Hydralazine HCl 10 mg Q6HP PRN IV 02/15/25 00:45 02/17/25 05:19 10 MG Laboratory Results Laboratory Tests 02/15/25 10:28 Urinalysis Test 02/14/25 12:24 Urine Color Dark-brown (Yellow) Urine Clarity Ex.turbid (Clear) Urine pH 5.5 (5.0-9.0) Urine Specific [place] 1.018 (1.001-1.035) Urine Protein 1+ (Negative) H Urine Ketones Negative (Negative) Urine Blood 3+ /uL (Negative) H Urine Nitrite Negative (Negative) Urine Bilirubin Negative (Negative) Urine Urobilinogen Normal mg/dL (Negative) Urine Leukocyte Esterase 1+ /uL (Negative) Urine RBC 5900 /hpf (0 - 3) Urine Microscopic WBC 32 /HPF (0-3) H Urine Squamous Epithelial Cells None seen /hpf (<5) Urine Bacteria Many /hpf (None Seen) H Urine Glucose Normal mg/dL (Normal) Microbiology Microbiology Date/Time Source Procedure Growth Status 02/16/25 05:00 Voided Urine Urine Culture - Preliminary Resulted 02/15/25 13:55 Blood Blood Culture - Preliminary NO GROWTH AFTER 48 HOURS OF INCUBATION. Resulted Labs and/or images reviewed: Labs reviewed by me, Image(s) reviewed by me Assessment/Plan Assessment/Plan Acute urinary retention: Status post Jones catheter placement by Urology Sepsis secondary to urinary tract infection: Blood cultures negative, urine cultures negative, treated with Rocephin 17 mm right UVJ stone with multiple bladder stones: Consult for Urology Dr. Nava treated, advised to discharge the patient on Jones with leg bag and follow up as an outpatient for cystolalithoplexy Hypertension 1.3 cm right hepatic hypodense lesion: MRI abdomen with and without IV contrast shows possible hemangioma Marked prostatomegaly, consult for Urology Possible dementia Time spent 55 minutes Patient is full code Advanced care planning time 20 mts at bedside and discussed discharge plan Plan discussed with: Patient, Spouse My Orders Orders - WOJCIECH AGUIRRE MD Procedure Category Date Status Time Mri Abdomen W And Wo MRI 02/17/25 Resulted 08:34 * Urology Consult CONS 02/17/25 Transmitted 08:41 Date of Service: Feb 18, 2025 Billing Provider: WOJCIECH AGUIRRE MD Common Visit Codes: [id number] INP/OBS CARE(HIGH) WOJCIECH AGUIRRE MD Feb 18, 2025 08:25
[2025-02-18] MEDS ORDERED: TAMS-35 PO (08:28)
[2025-02-18] MEDS ORDERED: TRAM-626 PO (08:28)
--- NOTE | 2025-02-18 08:32 | DVHDS2 ---
Discharge Summary Date of Admission Feb 14, 2025 at 15:09 Date of Discharge: Feb 18, 2025 Admitting Diagnosis Hematuria Wounds: None Labs/Diagnostic Data: Laboratory Results Test 02/15/25 10:28 02/14/25 12:24 White Blood Count 14.9 10^3/uL (4.4-10.8) Red Blood Count 5.05 10^6/uL (4.5-5.90) Hemoglobin 15.1 g/dL (13.5-17.5) Hematocrit 44.6 % (41.0-53.0) Mean Corpuscular Volume 88.3 fL (80.0-100.0) Mean Corpuscular Hemoglobin 30.0 pg (28.0-32.0) Mean Corpuscular Hemoglobin Concent 33.9 g/dL (32.0-36.0) Red Cell Distribution Width 13.7 % (11.8-14.3) Platelet Count 185 10^3/uL (140-450) Mean Platelet Volume 7.5 fL (6.9-10.8) Neutrophils (%) (Auto) 91.7 % (37.0-80.0) Lymphocytes (%) (Auto) 2.7 % (10.0-50.0) Monocytes (%) (Auto) 5.5 % (0.0-12.0) Eosinophils (%) (Auto) 0.0 % (0.0-7.0) Basophils (%) (Auto) 0.1 % (0.0-2.0) Neutrophils # (Auto) 13.7 10 ^3/uL (1.6-8.6) Lymphocytes # (Auto) 0.4 10 ^3/uL (0.4-5.4) Monocytes # (Auto) 0.8 10 ^3/uL (0-1.3) Eosinophils # (Auto) 0 10 ^3/uL (0-0.8) Basophils # (Auto) 0 10 ^3/uL (0-0.2) Nucleated Red Blood Cells 0.0 % Sodium Level 139 mmol/L (136-145) Potassium Level 4.1 mmol/L (3.5-5.1) Chloride Level 106 mmol/L (98-107) Carbon Dioxide Level 22 mmol/L (20-31) Anion Gap 11 (5-15) Blood Urea Nitrogen 25 mg/dL (9-23) Creatinine 1.38 mg/dL (0.700-1.30) Glomerular Filtration Rate Calc 49 mL/min (>90) BUN/Creatinine Ratio 18.1 (10.0-20.0) Serum Glucose 112 mg/dL (74-106) Calcium Level 9.9 mg/dL (8.7-10.4) Total Bilirubin 0.7 mg/dL (0.2-1.0) Aspartate Amino Transferase (AST) 24 U/L (13-40) Alanine Aminotransferase (ALT) 12 U/L (7-40) Alkaline Phosphatase 68 U/L (46-116) Total Protein 7.4 g/dL (5.7-8.2) Albumin 4.7 g/dL (3.2-4.8) Urine Color Dark-brown (Yellow) Urine Clarity Ex.turbid (Clear) Urine pH 5.5 (5.0-9.0) Urine Specific [place] 1.018 (1.001-1.035) Urine Protein 1+ (Negative) Urine Ketones Negative (Negative) Urine Blood 3+ /uL (Negative) Urine Nitrite Negative (Negative) Urine Bilirubin Negative (Negative) Urine Urobilinogen Normal mg/dL (Negative) Urine Leukocyte Esterase 1+ /uL (Negative) Urine RBC 5900 /hpf (0 - 3) Urine Microscopic WBC 32 /HPF (0-3) Urine Squamous Epithelial Cells None seen /hpf (<5) Urine Bacteria Many /hpf (None Seen) Urine Glucose Normal mg/dL (Normal) Other Laboratory Tests 02/15/25 10:28 Brief Hx & Hospital Course: 89-year-old male with a history of enlarged prostate hypertension came in for acute urinary retention. Jones was placed by Dr. Martinez. Patient has had sepsis secondary to urinary tract infection treated with Rocephin blood cultures negative urine cultures negative 17 mm right UVJ stone with a multiple bladder stones revealed in the CT of the abdomen . 1.4 cm lesion in the right hepatic lobe MRI showed hemangioma patient was advised accordingly. Urology Dr. Pop advised discharged home with a Jones leg bag and outpatient cystolalithoplexy. The and the patient was advised accordingly and discharged home Consults/Reason for consult Urology Dr. Nava and Dr. Martinez Operations or Procedures CT abdomen pelvis without contrast MRI abdomen Condition at Discharge: Fair Final Diagnosis/Problems List Acute urinary retention: Status post Jones catheter placement by Urology Sepsis secondary to urinary tract infection: Blood cultures negative, urine cultures negative, treated with Rocephin 17 mm right UVJ stone with multiple bladder stones: Consult for Urology Dr. Nava treated, advised to discharge the patient on Jones with leg bag and follow up as an outpatient for cystolalithoplexy Hypertension 1.3 cm right hepatic hypodense lesion: MRI abdomen with and without IV contrast shows possible hemangioma Marked prostatomegaly, consult for Urology Possible dementia Discharge Disposition: Home Discharge Instruct/Medications Diet: Cardiac 2g Na,low cholest Activity: Light activity Follow Up/Referral: Follow up with the primary Dr in one week Follow up with the Urology Dr. Nava in two weeks for outpatient surgery for bladder stones Resume all previous home medication Medications: Tramadol Flomax Transmitted to pharmacy Scheduled Amlodipine Besylate (Amlodipine Besylate), 1 TAB PO BID, (Reported) Atenolol (Atenolol), 0.5 TAB PO DAILY, (Reported) Clindamycin Hcl (Clindamycin Hcl), 2 CAP PO TID, (Reported) Prazosin HCl (Prazosin Hydrochloride), 4 MG PO BID, (Reported) Tamsulosin Hcl (Flomax), 1 CAP PO DAILY Scheduled PRN Tramadol HCl (Tramadol HCl), 50 MG PO QID PRN 39 (Time taken for discharge summary 39 minutes) Discharge Statement: "Patient was advised to return to the ER or call 911 if any headaches, dizziness, shortness of breath, chest pain, abdominal pain, bleeding, fevers, or worsening of medical condition. Patient was counseled about treatment plan, medications, possible side effects, patientverbalized understanding. All questions were answered to the best of my ability. This discharge took greater then 30 minutes in planning, reviewing documentation, counseling the patient, and discussing with other team members." ASSESSMENT ASSESSMENT Hospital Course Improved Assessment Acute urinary retention: Status post Jones catheter placement by Urology Sepsis secondary to urinary tract infection: Blood cultures negative, urine cultures negative, treated with Rocephin 17 mm right UVJ stone with multiple bladder stones: Consult for Urology Dr. Nava treated, advised to discharge the patient on Jones with leg bag and follow up as an outpatient for cystolalithoplexy Hypertension 1.3 cm right hepatic hypodense lesion: MRI abdomen with and without IV contrast shows possible hemangioma Marked prostatomegaly, consult for Urology Possible dementia Date of Service: Feb 18, 2025 Billing Provider: WOJCIECH AGUIRRE MD Common Visit Codes: [id number]-ECM/OBS DISCH DAY >30min WOJCIECH AGUIRRE MD Feb 18, 2025 08:32
[2025-02-18 09:09] VITALS: BP 169/78; PULSE 63; RESP 20; TEMP 97.4; O2SAT 94
[2025-02-18 09:30] VITALS: BP 145/88; PULSE 64
== END 2025-02-18 10:20 | disposition home or self-care (01) | DRG 872 ==
LOC: ER 10:32 → OVERFLOW 15:09 → CENTRAL 17:13
PROVIDERS: ADMIT Family Medicine; ATTEND Family Medicine
PROC: 0T9B70Z Drainage of Bladder with Drainage Device, Via Natural or Artificial Opening (ICD-10-PCS; principal; 2025-02-15)
DX: A41.9 Sepsis, unspecified organism (principal); N39.0 Urinary tract infection, site not specified; N20.2 Calculus of kidney with calculus of ureter; K76.89 Other specified diseases of liver; N21.0 Calculus in bladder; N18.9 Chronic kidney disease, unspecified; D18.03 Hemangioma of intra-abdominal structures; R33.8 Other retention of urine; I12.9 Hypertensive chronic kidney disease with stage 1 through stage 4 chronic kidney disease, or unspecified chronic kidney disease; N40.1 Benign prostatic hyperplasia with lower urinary tract symptoms; Z82.49 Family history of ischemic heart disease and other diseases of the circulatory system; Z85.118 Personal history of other malignant neoplasm of bronchus and lung; Z79.899 Other long term (current) drug therapy; Z88.1 Allergy status to other antibiotic agents; Z90.79 Acquired absence of other genital organ(s); Z88.8 Allergy status to other drugs, medicaments and biological substances; F03.90 Unspecified dementia, unspecified severity, without behavioral disturbance, psychotic disturbance, mood disturbance, and anxiety
CPT/HCPCS: 36415; 74176; 74183; 76857; 80048; 80053; 81001; 85025; 87040; 87086; 96361; 96365; 99291; G0378